=== PATIENT | female | born 1935 | race Caucasian/White ===

== ENCOUNTER 2016-12-19 00:28 | Inpatient (IN) | payer MEDICARE, OTHER ==
[2016-12-19] VITALS (7 sets, daily range): BP systolic 130–162; RESP 16–20; TEMP 97.2–98.1; Ht 149.9 cm; Wt 57.7 kg
[~2016-12-19] VITALS: Ht 149.9 cm; Wt 57.7 kg
[2016-12-19] MEDS ORDERED: OPTIRAY 350 100 ML VIAL HMH IV ONE ×2 (00:29)
[2016-12-19] MEDS ORDERED: ED METRONIDAZOLE IV 100 ML IV ONE (05:33)
[2016-12-19] MEDS ORDERED: CIPROFLOXACIN 400MG/200ML 200 ML IV ONE (06:29)
[2016-12-19] MEDS ORDERED: SODIUM CHLORIDE 0.9% 1,000 ML ONE (06:34)
[2016-12-19] MEDS ORDERED: MISSING DOSE XX ONE (08:45)
[2016-12-19] MEDS ORDERED: CEFTRIAXONE 1 GM in SODIUM CHLORIDE 0.9% 50 ML IV SCH (09:00)
[2016-12-19] MEDS: METRONIDAZOLE 500MG/100ML 100 ML IV SCH ×2 (10:32→17:36)
[2016-12-19] MEDS: LEVOFLOXACIN 500 MG/100 ML 100 ML IV SCH (11:53)
[2016-12-19] MEDS: HEPARIN 20,000 UNIT/500 ML *DVT/PE IV SCH (11:55)
[2016-12-19] MEDS: HEPARIN 5,000 UNITS/ML **DVT/PE IV PRN (11:59)
[2016-12-19] MEDS ORDERED: NEB-XOPENEX 0.63 MG/3 ML INH ONE (14:14)
[2016-12-19] MEDS: NEB-XOPENEX 0.63 MG/3 ML INH SCH ×3 (14:23→23:04)
[2016-12-19] MEDS: SODIUM CHLOR 0.9% W/KCL 20MEQ 1,000 ML IV SCH (14:42)
[2016-12-19] MEDS: PANTOPRAZOLE 40 MG TAB PO SCH (14:42)
[2016-12-19] MEDS: LEVOTHYROXINE 0.025 MG TAB PO SCH (14:42)
[2016-12-19] MEDS: ISOSORBIDE MONO 30 MG TAB PO SCH (14:42)
[2016-12-19] MEDS: CARVEDILOL 25 MG TAB PO SCH ×2 (14:42→20:56)
[2016-12-19] MEDS: CARBIDOPA/LEVODOPA 25/100 TAB PO SCH ×3 (15:41→20:56)
[2016-12-19] MEDS: ONDANSETRON 4 MG TAB PO PRN ×2 (16:20→20:56)
[2016-12-19] MEDS: ACETAMINOPHEN 325 MG TAB PO PRN (16:21)
[2016-12-19] MEDS: SOLIFENACIN 5 MG TAB PO SCH (20:56)
[2016-12-20] VITALS (9 sets, daily range): BP systolic 139–176; RESP 18–22; TEMP 97.4–98.4
[2016-12-20] MEDS: METRONIDAZOLE 500MG/100ML 100 ML IV SCH ×3 (01:00→16:42)
[2016-12-20] MEDS: LEVOTHYROXINE 0.025 MG TAB PO SCH (05:38)
[2016-12-20] MEDS: ACETAMINOPHEN 325 MG TAB PO PRN (05:39)
[2016-12-20] MEDS: PANTOPRAZOLE 40 MG TAB PO SCH (05:39)
[2016-12-20] MEDS: SODIUM CHLOR 0.9% W/KCL 20MEQ 1,000 ML IV SCH (05:41)
[2016-12-20] MEDS ORDERED: MISSING DOSE XX ONE ×4 (05:45→21:10)
[2016-12-20] MEDS: NEB-XOPENEX 0.63 MG/3 ML INH SCH ×4 (06:04→22:33)
[2016-12-20] MEDS: HEPARIN 20,000 UNIT/500 ML *DVT/PE IV SCH (07:40)
[2016-12-20] MEDS: ONDANSETRON 4 MG TAB PO PRN ×2 (08:16→17:06)
[2016-12-20] MEDS: CARBIDOPA/LEVODOPA 25/100 TAB PO SCH ×2 (08:16→16:41)
[2016-12-20] MEDS: ISOSORBIDE MONO 30 MG TAB PO SCH (08:17)
[2016-12-20] MEDS: CARVEDILOL 25 MG TAB PO SCH ×2 (08:17→20:56)
[2016-12-20] MEDS: LEVOFLOXACIN 500 MG/100 ML 100 ML IV SCH (09:07)
[2016-12-20] MEDS: POLYETHYLENE GLYCOL 17 GM PACKET PO SCH ×2 (18:05→21:29)
[2016-12-20] MEDS: SOLIFENACIN 5 MG TAB PO SCH (20:56)
[2016-12-20] MEDS: Senna/DSS 50/8.6 MG TAB PO SCH (20:56)
[2016-12-20] MEDS: BISACODYL EC 5 MG TAB PO PRN (21:29)
[2016-12-21] VITALS (7 sets, daily range): BP systolic 153–176; RESP 16–20; TEMP 97.5–97.9
[2016-12-21] MEDS: METRONIDAZOLE 500MG/100ML 100 ML IV SCH ×3 (00:30→16:02)
[2016-12-21] MEDS: TRAMADOL 50 MG TAB PO PRN ×2 (00:38→21:13)
[2016-12-21] MEDS: ONDANSETRON 4 MG TAB PO PRN (01:45)
[2016-12-21] MEDS: CARBIDOPA/LEVODOPA 25/100 TAB PO SCH ×4 (01:45→21:14)
[2016-12-21] MEDS ORDERED: MISSING DOSE XX ONE ×2 (05:40→10:45)
[2016-12-21] MEDS: HEPARIN 5,000 UNITS/ML **DVT/PE IV PRN (05:59)
[2016-12-21] MEDS: SODIUM CHLOR 0.9% W/KCL 20MEQ 1,000 ML IV SCH ×2 (06:00→14:15)
[2016-12-21] MEDS: NEB-XOPENEX 0.63 MG/3 ML INH SCH ×4 (06:27→22:38)
[2016-12-21] MEDS: LEVOTHYROXINE 0.025 MG TAB PO SCH (06:36)
[2016-12-21] MEDS: PANTOPRAZOLE 40 MG TAB PO SCH (06:37)
[2016-12-21] MEDS: CARVEDILOL 25 MG TAB PO SCH ×2 (08:11→21:12)
[2016-12-21] MEDS: ISOSORBIDE MONO 30 MG TAB PO SCH (08:11)
[2016-12-21] MEDS: Senna/DSS 50/8.6 MG TAB PO SCH ×2 (08:12→21:00)
[2016-12-21] MEDS: POLYETHYLENE GLYCOL 17 GM PACKET PO SCH (08:12)
[2016-12-21] MEDS ORDERED: ONDANSETRON 4 MG TAB PO PRN (09:25)
[2016-12-21] MEDS: LEVOFLOXACIN 500 MG/100 ML 100 ML IV SCH (09:45)
[2016-12-21] MEDS: ONDANSETRON 4 MG TAB PO SCH ×3 (10:36→21:14)
[2016-12-21] MEDS ORDERED: LACTULOSE SOLN 20GM/30ML UDC PO PRN (11:30)
[2016-12-21] MEDS: BISACODYL EC 5 MG TAB PO PRN (11:30)
[2016-12-21] MEDS: SOLIFENACIN 5 MG TAB PO SCH (21:13)
[2016-12-22] MEDS: METRONIDAZOLE 500MG/100ML 100 ML IV SCH ×4 (00:41→22:57)
[2016-12-22] MEDS: ACETAMINOPHEN 325 MG TAB PO PRN ×2 (00:42→09:37)
[2016-12-22] MEDS: HEPARIN 20,000 UNIT/500 ML *DVT/PE IV SCH ×2 (01:54→22:39)
[2016-12-22 03:41] VITALS: BP_SYST 151; RESP 20; TEMP 97.9
[2016-12-22] MEDS: SODIUM CHLOR 0.9% W/KCL 20MEQ 1,000 ML IV SCH ×2 (05:21→18:09)
[2016-12-22] MEDS: PANTOPRAZOLE 40 MG TAB PO SCH (06:14)
[2016-12-22] MEDS: LEVOTHYROXINE 0.025 MG TAB PO SCH (06:14)
[2016-12-22 07:17] VITALS: BP_SYST 158; RESP 20; TEMP 97.7
[2016-12-22] MEDS: NEB-XOPENEX 0.63 MG/3 ML INH SCH ×4 (07:41→23:00)
[2016-12-22] MEDS: LEVOFLOXACIN 500 MG/100 ML 100 ML IV SCH (08:12)
[2016-12-22] MEDS: ONDANSETRON 4 MG TAB PO SCH ×3 (08:12→20:46)
[2016-12-22] MEDS: POLYETHYLENE GLYCOL 17 GM PACKET PO SCH (09:00)
[2016-12-22] MEDS ORDERED: MISSING DOSE XX ONE ×2 (09:45→15:05)
[2016-12-22] MEDS ORDERED: PROMETHAZINE 25 MG/ML VIAL IV PRN ×2 (10:45→11:20)
[2016-12-22] MEDS ORDERED: ONDANSETRON 4 MG VIAL IV PUSH PRN (11:20)
[2016-12-22] MEDS: ISOSORBIDE MONO 30 MG TAB PO SCH (11:48)
[2016-12-22] MEDS: CARVEDILOL 25 MG TAB PO SCH ×2 (11:48→20:48)
[2016-12-22 11:59] VITALS: RESP 20; TEMP 98.2
[2016-12-22] MEDS: TRAMADOL 50 MG TAB PO PRN (13:06)
[2016-12-22] MEDS: Senna/DSS 50/8.6 MG TAB PO SCH ×2 (13:35→20:48)
[2016-12-22] MEDS: CARBIDOPA/LEVODOPA 25/100 TAB PO SCH ×3 (13:35→20:46)
[2016-12-22 15:45] VITALS: BP_SYST 138; RESP 18; TEMP 97.5
[2016-12-22 19:49] VITALS: BP_SYST 143; RESP 22; TEMP 97.7
[2016-12-22] MEDS: SOLIFENACIN 5 MG TAB PO SCH (20:47)
[2016-12-22 22:58] VITALS: BP_SYST 110; RESP 18; TEMP 97.7
[2016-12-23] VITALS (7 sets, daily range): BP systolic 132–171; RESP 18–20; TEMP 97.3–98.6
[2016-12-23] MEDS: ACETAMINOPHEN 325 MG TAB PO PRN ×3 (03:04→20:00)
[2016-12-23] MEDS: LEVOTHYROXINE 0.025 MG TAB PO SCH (06:06)
[2016-12-23] MEDS: PANTOPRAZOLE 40 MG TAB PO SCH (06:06)
[2016-12-23] MEDS: NEB-XOPENEX 0.63 MG/3 ML INH SCH ×4 (07:30→22:52)
[2016-12-23] MEDS: Senna/DSS 50/8.6 MG TAB PO SCH ×2 (08:26→20:00)
[2016-12-23] MEDS: CARVEDILOL 25 MG TAB PO SCH ×2 (08:26→20:00)
[2016-12-23] MEDS: CARBIDOPA/LEVODOPA 25/100 TAB PO SCH ×3 (08:26→20:00)
[2016-12-23] MEDS: LEVOFLOXACIN 500 MG/100 ML 100 ML IV SCH (08:26)
[2016-12-23] MEDS: METRONIDAZOLE 500MG/100ML 100 ML IV SCH ×3 (08:26→23:25)
[2016-12-23] MEDS: ISOSORBIDE MONO 30 MG TAB PO SCH (08:26)
[2016-12-23] MEDS: ONDANSETRON 4 MG TAB PO SCH ×3 (08:26→20:00)
[2016-12-23] MEDS: SODIUM CHLOR 0.9% W/KCL 20MEQ 1,000 ML IV SCH (08:28)
[2016-12-23] MEDS: POLYETHYLENE GLYCOL 17 GM PACKET PO SCH ×2 (08:28→14:16)
[2016-12-23] MEDS ORDERED: MISSING DOSE XX ONE (13:20)
[2016-12-23] MEDS: SOLIFENACIN 5 MG TAB PO SCH (20:00)
[2016-12-23] MEDS: TRAMADOL 50 MG TAB PO PRN (22:29)
[2016-12-23] MEDS: HEPARIN 20,000 UNIT/500 ML *DVT/PE IV SCH (23:24)
[2016-12-24] VITALS (7 sets, daily range): BP systolic 140–169; RESP 18–20; TEMP 97.3–98.3
[2016-12-24] MEDS: TRAMADOL 50 MG TAB PO PRN (05:39)
[2016-12-24] MEDS: NEB-XOPENEX 0.63 MG/3 ML INH SCH ×4 (06:56→22:27)
[2016-12-24] MEDS: LEVOTHYROXINE 0.025 MG TAB PO SCH (07:11)
[2016-12-24] MEDS: PANTOPRAZOLE 40 MG TAB PO SCH (07:11)
[2016-12-24] MEDS ORDERED: MISSING DOSE XX ONE ×2 (07:30→17:05)
[2016-12-24] MEDS: Senna/DSS 50/8.6 MG TAB PO SCH ×2 (09:00→20:39)
[2016-12-24] MEDS: POLYETHYLENE GLYCOL 17 GM PACKET PO SCH (09:00)
[2016-12-24] MEDS: CARBIDOPA/LEVODOPA 25/100 TAB PO SCH ×3 (09:04→20:39)
[2016-12-24] MEDS: ISOSORBIDE MONO 30 MG TAB PO SCH (09:04)
[2016-12-24] MEDS: ONDANSETRON 4 MG TAB PO SCH ×3 (09:04→20:39)
[2016-12-24] MEDS: METRONIDAZOLE 500MG/100ML 100 ML IV SCH ×3 (09:04→23:14)
[2016-12-24] MEDS: CARVEDILOL 25 MG TAB PO SCH ×2 (09:04→20:39)
[2016-12-24] MEDS: LEVOFLOXACIN 500 MG/100 ML 100 ML IV SCH (10:10)
[2016-12-24] MEDS: SOLIFENACIN 5 MG TAB PO SCH (20:39)
[2016-12-25 03:32] VITALS: BP_SYST 150; TEMP 97.5
[2016-12-25 03:33] VITALS: RESP 20
[2016-12-25] MEDS: TRAMADOL 50 MG TAB PO PRN (04:40)
[2016-12-25] MEDS: PANTOPRAZOLE 40 MG TAB PO SCH (06:01)
[2016-12-25] MEDS: LEVOTHYROXINE 0.025 MG TAB PO SCH (06:01)
[2016-12-25] MEDS: NEB-XOPENEX 0.63 MG/3 ML INH SCH (06:53)
[2016-12-25] MEDS: ACETAMINOPHEN 325 MG TAB PO PRN (07:07)
[2016-12-25 07:11] VITALS: TEMP 97.4
[2016-12-25 07:12] VITALS: BP_SYST 155; RESP 16
[2016-12-25] MEDS: POLYETHYLENE GLYCOL 17 GM PACKET PO SCH (09:00)
[2016-12-25] MEDS: CARVEDILOL 25 MG TAB PO SCH (09:31)
[2016-12-25] MEDS: METRONIDAZOLE 500MG/100ML 100 ML IV SCH (09:31)
[2016-12-25] MEDS: ONDANSETRON 4 MG TAB PO SCH (09:31)
[2016-12-25] MEDS: CARBIDOPA/LEVODOPA 25/100 TAB PO SCH (09:31)
[2016-12-25] MEDS: Senna/DSS 50/8.6 MG TAB PO SCH (09:32)
[2016-12-25] MEDS: ISOSORBIDE MONO 30 MG TAB PO SCH (09:32)
[2016-12-25] MEDS: LEVOFLOXACIN 500 MG/100 ML 100 ML IV SCH (10:22)
[2016-12-25 10:44] VITALS: BP_SYST 155; RESP 16; TEMP 97.4
[2016-12-25 11:19] VITALS: BP_SYST 125; RESP 18; TEMP 97.8
== END 2016-12-25 14:45 | DRG 391 ==
LOC: ENRESERVDT → ENRESERVTM → ER 00:28 → ENPENDDIS 06:09 → EMR 06:09 → PCU 07:26 → 3NT 12-20 10:53
PROVIDERS: ADMIT Internal Medicine; ATTEND Internal Medicine
DX: K57.92 Diverticulitis of intestine, part unspecified, without perforation or abscess without bleeding (principal); I26.99 Other pulmonary embolism without acute cor pulmonale; R55 Syncope and collapse; K59.00 Constipation, unspecified; E03.9 Hypothyroidism, unspecified; G20 Parkinson's disease; I25.10 Atherosclerotic heart disease of native coronary artery without angina pectoris; Z80.0 Family history of malignant neoplasm of digestive organs; Z82.49 Family history of ischemic heart disease and other diseases of the circulatory system; Z79.82 Long term (current) use of aspirin
CPT/HCPCS: 36415; 71260; 74177; 80053; 80061; 81003; 81240; 81241; 82378; 83090; 83690; 85025; 85300; 85303; 85306; 85610; 85613; 85730; 85732; 86038; 86141; 86147; 86300; 86301; 93005; 93306; 93970; 94640; 94799; 96365; 96375